=== PATIENT | male | born 1995 | race Hispanic/Latino ===

== ENCOUNTER 2020-11-17 21:50 | Emergency (ER) | payer OTHER, BC, SELFPAY ==
--- NOTE | ~2020-11-17 | XR_ITS ---
EXAMINATION: XR ankle RT min 3V DATE: 11/17/2020 23:48 INDICATION: Right ankle injury and pain. TECHNIQUE: 4 views of right ankle were obtained. COMPARISON: None. FINDINGS: Bone alignment is normal. No fracture. Joint spaces are well maintained. There is ankle sof t tissue swelling. IMPRESSION: 1. No fracture. Reviewed, dictated and finalized at location A. IMPRESSION: 1. No fracture.
[2020-11-17 22:35] VITALS: BP 142/80; PULSE 90; RESP 20; TEMP 36.8; O2SAT 100
--- NOTE | 2020-11-18 01:51 | ED.LOWEXIN ---
HPI - Extremity Injury (Lower) General Chief Complaint: Extremity Injury, Lower Stated Complaint: right ankle pain Time Seen by Provider: 11/18/20 01:46 Source: patient and RN notes reviewed Mode of arrival: ambulatory Limitations: no limitations History of Present Illness HPI Narrative: This is a 24 year old male who presents for evaluation of a right ankle injury. He states he rolled his right ankle at work yesterday around 1 pm. He thinks he heard a pop. He is able to walk and bear weight on the ankle. Pain is worse with movement and walking. He has some swelling. He denies any other injury or pain. He has not taken anything for his pain. Related Data Allergies Allergy/AdvReac Type Severity Reaction Status Date / Time amoxicillin Allergy Unknown Verified 02/13/16 13:12 Review of Systems Review of Systems: All systems reviewed & are unremarkable except as noted in HPI and below PMFSH Past Medical History Medical History (Updated 11/18/20 @ 01:55 by Mya Perez MD) Patient denies medical problems Surgical History Surgical History (Updated 11/18/20 @ 01:53 by Mya Perez MD) No pertinent past surgical history Social History Social History (Updated 11/18/20 @ 01:53 by Mya Perez MD) Smoking status: Never smoker Exam Const: General: no acute distress and alert Orientation/consciousness: patient oriented x3 Eyes: EOM: EOMs intact bilaterally Resp: Effort & Inspection: normal respiratory effort, no retractions and not tachypneic Skin: General skin exam: normal color Rashes: no rashes Neuro: General: patient oriented x3 Extrem: Other: right ankle with lateral malleolus swelling and tenderness, palpable pedal pulses, no knee or hip tenderness. no foot tenderness Course Reevaluation(s) Reevaluation #1: I discussed with patient that xray shows no acute fracture. He will be treated for an ankle sprain. He will be given ICE pack and ibuprofen. Date: 11/18/20 Time: 01:54 Vital Signs Vital signs: Vital Signs Temperature 98.3 F 11/17/20 22:35 Pulse Rate 90 11/17/20 22:35 Respiratory Rate 20 11/17/20 22:35 Blood Pressure 142/80 H 11/17/20 22:35 Pulse Oximetry 100 05/07/21 22:35 Temperature 98.3 F 11/17/20 22:35 Pulse Rate 90 11/18/20 02:22 Respiratory Rate 16 11/18/20 02:22 Blood Pressure 140/80 11/18/20 02:22 Pulse Oximetry 100 11/18/20 02:22 MDM - Extremity Injury (Lower) Imaging Data Radiologist's impression: ITS Impressions Ankle X-Ray 11/17/20 23:52 IMPRESSION: 1. No fracture. Discharge Plan Discharge Clinical Impression: Right ankle sprain Qualifiers: Encounter type: initial encounter Involved ligament of ankle: unspecified ligament Qualified Code(s): S93.401A - Sprain of unspecified ligament of right ankle, initial encounter Patient Disposition: Home, Self-Care Condition: Stable Instructions: Ankle Sprain (ED) Additional Instructions: Today you were evaluated for an ankle sprain. For the next 24-4 48 hours rest, elevate, and apply ice intermittently. You can get an ankle brace for comfort. Take NSAIDS such as ibuprofen for your pain. Prescriptions: New ibuprofen 600 mg tablet 600 mg PO Q6H PRN (Reason: pain) Qty: 14 RF: 0 Follow-up/Referrals: Lv,MD Rena [Primary Care Provider] -
[2020-11-18] MEDS: IBUPROFEN 400 MG TABLET 800 MG PO (02:16)
[2020-11-18 02:22] VITALS: BP 140/80; PULSE 90; RESP 16; O2SAT 100
== END 2020-11-18 02:22 | disposition home or self-care (01) ==
PROVIDERS: Emergency Provider General Practice; PCP Family Medicine
DX: S93.401A Sprain of unspecified ligament of right ankle, initial encounter (principal); X50.9XXA Other and unspecified overexertion or strenuous movements or postures, initial encounter
CPT/HCPCS: 73610; 99283; A9270

== ENCOUNTER 2020-12-22 06:43 | Emergency (ER) | payer BC, OTHER, SELFPAY ==
[2020-12-22 06:48] VITALS: BP 126/82; PULSE 62; RESP 18; TEMP 36.5; O2SAT 98
--- NOTE | 2020-12-22 07:13 | ED.BACK ---
HPI - Back Pain/Injury General Chief Complaint: Back Pain/Injury Stated Complaint: back pain Time Seen by Provider: 12/22/20 07:12 Source: patient and family Limitations: no limitations History of Present Illness HPI Narrative: 24 years old male presents with mid back pain started few days ago, got worse today after lifting a heavy box of water bottles and his left shoulder. Patient denies radiation of pain, tingling numbness. Patient had 800 mg of ibuprofen prior to arrival Related Data Allergies Allergy/AdvReac Type Severity Reaction Status Date / Time amoxicillin Allergy Unknown Unknown Verified 12/22/20 06:53 Review of Systems Review of Systems: Narrative: CONSTITUTIONAL: Denies fever, chills, or sweats. EYES: Denies visual changes, redness, or discharge. ENT: Denies rhinorrhea, congestion, sore throat, or otalgia. CARDIOVASCULAR: Denies chest pain, palpitations, or edema. RESPIRATORY: Denies cough or dyspnea. GASTROINTESTINAL: Denies abdominal pain, nausea, vomiting, or diarrhea. GENITOURINARY: Denies dysuria or hematuria. SKIN: Denies rash or itching. MUSCULOSKELETAL: Denies back pain, joint pain, or myalgia. NEUROLOGIC: Denies headache, numbness, or weakness. PSYCHIATRIC: Denies anxiety or depression. PMFSH Past Medical History Medical History Patient denies medical problems Surgical History Surgical History No pertinent past surgical history Social History Social History Smoking status: Never smoker Exam Narrative: Exam Narrative: General appearance: Well-developed, well-nourished Skin: Normal color Head: Normocephalic, nontraumatic Neck: Supple, nontender Chest and respiratory: Airway patent, no respiratory distress, no accessory muscle use Heart: Regular rate/rhythm Abdomen: Soft, nontender, no organomegaly, quiet bowel sounds Vascular: Normal peripheral pulses, normal capillary refill. Musculoskeletal: Diffuse tenderness left mid back, no spinous or paraspinous tenderness Neurologic: Alert and oriented ?3, SIDE PULLER is normal as tested, no gross motor deficit Course Course Emergency Course: Stable Vital Signs Vital signs: Vital Signs Temperature 36.5 C 12/22/20 06:48 Pulse Rate 62 12/22/20 06:48 Respiratory Rate 18 12/22/20 06:48 Blood Pressure 126/82 12/22/20 06:48 Pulse Oximetry 98 12/22/20 06:48 Temperature 36.5 C 12/22/20 06:48 Pulse Rate 62 12/22/20 06:48 Respiratory Rate 18 12/22/20 06:48 Blood Pressure 126/82 12/22/20 06:48 Pulse Oximetry 98 12/22/20 06:48 MDM - Back Pain/Injury MDM Narrative Medical decision making narrative: Muscular strain/sprain is my concern, Dilaudid 1 mg IM, Valium 5 mg orally, Zofran 4 mg orally. Differential Diagnosis Differential diagnosis: Likely other (Muscular strain) Critical Care Time Critical Care Time Critical Care Time: No Discharge Plan Discharge Clinical Impression: Muscle strain of left upper back Qualifiers: Encounter type: initial encounter Qualified Code(s): S29.012A - Strain of muscle and tendon of back wall of thorax, initial encounter Patient Disposition: Home, Self-Care Condition: Improved Instructions: Thoracic Back Strain (ED) Additional Instructions: Return if symptoms are worsening , call your family physician for appointment, take Tylenol as as needed for aches and pain, continue home medications. Prescriptions: New naproxen [Naprosyn] 500 mg tablet 500 mg PO BID PRN (Reason: pain) Qty: 14 RF: 0 cyclobenzaprine 10 mg tablet 10 mg PO
[2020-12-22] MEDS: HYDROmorphone HCL INJ (*CRX) 1 MG/ML SYR IM (07:27)
[2020-12-22] MEDS: diazePAM (*CRX) 5 MG TABLET PO (07:28)
== END 2020-12-22 07:44 | disposition home or self-care (01) ==
PROVIDERS: Emergency Provider Emergency Medicine; PCP Family Medicine
DX: S29.012A Strain of muscle and tendon of back wall of thorax, initial encounter (principal); X50.0XXA Overexertion from strenuous movement or load, initial encounter
CPT/HCPCS: 96372; 99283; A9270; J1170

== ENCOUNTER 2021-06-28 22:20 | Emergency (ER) | payer OTHER, BC, SELFPAY ==
[2021-06-28 22:49] VITALS: PULSE 89; RESP 18; O2SAT 100
--- NOTE | 2021-06-28 22:54 | ED.EYEPROB ---
HPI - Eye Problem General Chief complaint: Eye Problems Stated complaint: eye problem Time Seen by Provider: 06/28/21 22:53 Source: patient Mode of arrival: ambulatory Limitations: no limitations History of Present Illness HPI Narrative: Patient is a 25 yo male who presents to the ER for evaluation of right eye pain, irritation. 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 Patient endorses that he currently has a right eye foreign body sensation. He reports tearing of the eye without discharge. He is up-to-date on his tetanus vaccine. He denies any use of corrective lenses or contact lenses. Denies double vision or blurry vision. No headache. Related Data Allergies Allergy/AdvReac Type Severity Reaction Status Date / Time amoxicillin Allergy Unknown Unknown Verified 06/28/21 22:53 Review of Systems Review of Systems: CONSTITUTIONAL: Denies fever HEENT: Reports right eye irritation CARDIOVASCULAR: Denies chest pain RESPIRATORY: Denies cough or dyspnea. GASTROINTESTINAL: Denies abdominal pain SKIN: Denies rash MUSCULOSKELETAL: Denies back pain NEUROLOGIC: Denies headache [facility] Past Medical History Medical History Patient denies medical problems Surgical History Surgical History No pertinent past surgical history Social History Social History (Updated 06/28/21 @ 22:56 by Beatrice Ceja MD) Smoking status: Current some day smoker Tobacco type: cigars Exam Narrative: GENERAL: Awake, alert, conversant HEAD: Normocephalic, atraumatic. EYES: 2+PERRLA and EOMI. Patient with conjunctival injection, tearing to the right eye. There is a metallic foreign body embedded in the right eye, periphery of the sclera, 7 o clock location. ENT: Nares clear, no rhinorrhea or epistaxis. Mucous membranes moist. NECK: Supple. CHEST: No respiratory distress, breathing even and non labored HEART: Regular rate, sinus rhythm ABDOMEN:Non distended, non tender EXTREMITIES: Normal range of motion. No edema. SKIN: Warm, dry, no rash. NEURO:No focal deficits. Alert and oriented x3 Course Vital Signs Vital signs: Vital Signs Pulse Rate 89 06/28/21 22:49 Respiratory Rate 18 06/28/21 22:49 Pulse Oximetry 100 06/28/21 22:49 Pulse Rate 89 06/28/21 22:49 Respiratory Rate 18 06/28/21 22:49 Pulse Oximetry 100 06/28/21 22:49 MDM - Eye Problem MDM Narrative Medical decision making narrative: Patient presented to the emergency department for evaluation of right eye irritation, foreign body sensation. The time of assessment, ABCs are intact and vital signs are stable. Physical exam is notable for a foreign body in the periphery of the sclera. Pt with normal visual acuity. Pt with negative macarena sign. Pt tetanus is up to date. Foreign body was removed with 27 gauge needle with bevel up. [facility] opthalmology contacted regarding patient. Partial amount of rust ring was removed. I spoke with Dr. Zacarias at [facility] ophthalmology, he did not have any further recommendations but would like to see the patient in office tomorrow morning at 10 AM. Patient is amenable to this plan. He was given a prescription for erythromycin. He was then discharged home with family, follow-up tomorrow morning. Differential Diagnosis Differential diagnosis: Likely corneal abrasion, periorbital cellulitis, corneal ulcer, ruptured globe and other (Foreign body) Discharge Plan Discharge Clinical Impression: Corneal abrasion, Foreign body of right eye Patient Disposition: Home, Self-Care Condition: Stable Instructions: Eye Foreign Body (ED) Additional Instructions: You have a corneal abrasion to your eye. You had a piece of metal foreign body that was mostly removed. Please do not rub the eye. Please only place the antibiotic ointment prescribed to you as this will promo
== END 2021-06-29 | disposition home or self-care (01) ==
PROVIDERS: Emergency Provider Emergency Medicine; PCP Family Medicine
DX: S00.251A Superficial foreign body of right eyelid and periocular area, initial encounter (principal); W45.8XXA Other foreign body or object entering through skin, initial encounter
CPT/HCPCS: 99283